=== PATIENT | female | born 1990 | race Caucasian/White ===

== ENCOUNTER 2017-02-22 11:40 | Emergency (ER) | payer SELFPAY ==
[2017-02-22 12:49] VITALS: BP 118/72
[2017-02-22 13:10] LABS: Hematocrit 39.7 % (30.3-42.9); Hemoglobin 12.7 gm/dl (10.1-14.3); Mean Corpuscular HGB Conc 32 % (30-34); Mean Corpuscular Hemoglobin 28 pg (28-32); Mean Corpuscular Volume 88 fl (79-97); Platelet Count 178 K/mm3 (140-440); Red Blood Count 4.53 M/mm3 (3.65-5.03); White Blood Count 3.2 K/mm3 (4.5-11.0)
[2017-02-22 13:55] LABS: Blastocytes % (Manual) 0 %; Diff Status Complete; Platelet Estimate Consistent w Auto; RBC Morphology Normal
[2017-02-22 14:57] LABS: Bilirubin,Urine NEG (Negative); Blood,Urine SM (Negative); Ketones,Urine NEG (Negative); Leukocyte Esterase,Urine TR (Negative); Mucus,Urine FEW /HPF; Nitrite,Urine NEG (Negative)
--- NOTE | 2017-02-22 16:12 | Emergency Department Report ---
ED Female HPI - General Chief complaint: Vaginal Bleeding Stated complaint: CRAMPING /POSSIBLE MISCARRIAGE Time Seen by Provider: 02/22/17 15:42 Source: patient Mode of arrival: Ambulatory Limitations: No Limitations - History of Present Illness Initial comments: pt is a 27 y/o aaf G2, P1, A1, LMP 01/30/2017 who presents for vaginal spotting x 2 days pt endorses cramping no vaginal discharge no feve no chills no n/v no back pain no dysuria no urgency no frequency no rash no lesions no open sores. MD Complaint: vaginal bleeding Onset/Timin -: days(s) Radiation: non-radiating, LLQ Quality: cramping Consistency: intermittent Improves with: none Worsens with: none Are you Now?: No Last Menstrual Period: 01/30/17 EDC: 11/06/17 Associated Symptoms: vaginal bleeding, abdominal pain. denies: vaginal discharge, nausea/vomiting, fever/chills, headaches, loss of appetite, dysuria, hematuria, rash, seizure, shortness of breath, syncope, weakness - Related Data Sexually active: Yes : 2 Para: 1 A: 1 Previous Rx's Medication Instructions Recorded Last Taken Type Ibuprofen [Motrin 800 MG tab] 800 mg PO Q8HR PRN #30 tablet 02/22/17 Unknown Rx Allergies Allergy/AdvReac Type Severity Reaction Status Date / Time No Known Allergies Allergy Unverified 02/22/17 12:50 ED Review of Systems ROS: Stated complaint: CRAMPING /POSSIBLE MISCARRIAGE Other details as noted in HPI Constitutional: denies: chills, fever Eyes: denies: eye pain, eye discharge, vision change ENT: denies: ear pain, throat pain Respiratory: denies: cough, shortness of breath, wheezing Cardiovascular: denies: chest pain, palpitations Endocrine: no symptoms reported Gastrointestinal: denies: abdominal pain, nausea, diarrhea Genitourinary: other (vaginal spotting ). denies: urgency, dysuria, frequency, hematuria, discharge, abnormal menses, dyspareunia Musculoskeletal: denies: back pain, joint swelling, arthralgia Skin: denies: rash, lesions Neurological: denies: headache, weakness, paresthesias Psychiatric: denies: anxiety, depression Hematological/Lymphatic: denies: easy bleeding, easy bruising ED Past Medical Hx - Past Medical History Previous Medical History?: No - Surgical History Past Surgical History?: No - Social History Smoking Status: Never Smoker Substance Use Type: None - Medications Home Medications: Home Medications Medication Instructions Recorded Confirmed Last Taken Type Ibuprofen [Motrin 800 MG tab] 800 mg PO Q8HR PRN #30 tablet 02/22/17 Unknown Rx ED Physical Exam - General Limitations: No Limitations General appearance: alert, in no apparent distress - Head Head exam: Present: atraumatic, normocephalic - Eye Eye exam: Present: normal appearance - ENT ENT exam: Present: mucous membranes moist - Neck Neck exam: Present: normal inspection - Respiratory Respiratory exam: Present: normal lung sounds bilaterally. Absent: respiratory distress - Cardiovascular Cardiovascular Exam: Present: regular rate, normal rhythm. Absent: systolic murmur, diastolic murmur, rubs, gallop - GI/Abdominal GI/Abdominal exam: Present: soft, normal bowel sounds. Absent: distended, tenderness, guarding, rebound, rigid, organomegaly, mass, bruit, pulsatile mass , hernia - Rectal Rectal exam: Present: deferred - External exam: Present: other (exam deferred per patient " I will follow up with Public Health Outreach Worker because I cant wait") - Extremities Exam Extremities exam: Present: normal inspection - Back Exam Back exam: Present: normal inspection, full ROM. Absent: tenderness, CVA tenderness (L), muscle spasm, paraspinal tenderness, vertebral tenderness - Neurological Exam Neurological exam: Present: alert, oriented X3 - Psychiatric Psychiatric exam: Present: normal affect, normal mood - Skin Skin exam: Present: warm, dry, intact, normal color. Absent: rash ED Course Vital Signs 02/22/17 12:46 Temperature 98.2 F Pulse Rate 78 Respiratory 16 Rate Blood Pressure 118/72 O2 Sat by Pulse 99 Oximetry ED Medical Decision Making - Lab Data Result diagrams: 02/22/17 12:54 Laboratory Tests 02/22/17 02/22/17 02/22/17 12:54 12:54 14:05 WBC 3.2 L RBC 4.53 Hgb 12.7 Hct 39.7 MCV 88 MCH 28 MCHC 32 RDW 15.0 Plt Count 178 Add Manual Diff Complete Total Counted 100 Seg Neuts % (Manual) 40.0 Band Neutrophils % 0 Lymphocytes % (Manual) 52.0 H Reactive Lymphs % (Man) 0 Monocytes % (Manual) 5.0 Eosinophils % (Manual) 2.0 Basophils % (Manual) 1.0 Metamyelocytes % 0 Myelocytes % 0 Promyelocytes % 0 Blast Cells % 0 Nucleated RBC % Not Reportable Seg Neutrophils # Man 1.3 L Band Neutrophils # 0.0 Lymphocytes # (Manual) 1.7 Abs React Lymphs (Man) 0.0 Monocytes # (Manual) 0.2 Eosinophils # (Manual) 0.1 Basophils # (Manual) 0.0 Metamyelocytes # 0.0 Myelocytes # 0.0 Promyelocytes # 0.0 Blast Cells # 0.0 WBC Morphology Not Reportable Hypersegmented Neuts Not Reportable Hyposegmented Neuts Not Reportable Hypogranular Neuts Not Reportable Smudge Cells Not Reportable Toxic Granulation Not Reportable Toxic Vacuolation Not Reportable Dohle Bodies Not Reportable Pelger-Huet Anomaly Not Reportable Jamie Rods Not Reportable Platelet Estimate Consistent w auto Clumped Platelets Not Reportable Plt Clumps, EDTA Not Reportable Large Platelets Not Reportable Giant Platelets Not Reportable Platelet Satelliting Not Reportable Plt Morphology Comment Not Reportable RBC Morphology Normal Dimorphic RBCs Not Reportable Polychromasia Not Reportable Hypochromasia Not Reportable Poikilocytosis Not Reportable Anisocytosis Not Reportable Microcytosis Not Reportable Macrocytosis Not Reportable Spherocytes Not Reportable Pappenheimer Bodies Not Reportable Sickle Cells Not Reportable Target Cells Not Reportable Tear Drop Cells Not Reportable Ovalocytes Not Reportable Helmet Cells Not Reportable [place] Bodies Not Reportable [place] Rings Not Reportable Curtis Cells Not Reportable Bite Cells Not Reportable Crenated Cell Not Reportable Elliptocytes Not Reportable Acanthocytes (Spur) Not Reportable Rouleaux Not Reportable Hemoglobin C Crystals Not Reportable Schistocytes Not Reportable Malaria parasites Not Reportable Wolf Bodies Not Reportable Hem Pathologist Commnt No HCG, Quant < 2 Urine Color Yellow Urine Turbidity Slightly-cloudy Urine pH 7.0 Ur Specific [place] 1.027 Urine Protein 30 mg/dl Urine Glucose (UA) Neg Urine Ketones Neg Urine Blood Sm Urine Nitrite Neg Urine Bilirubin Neg Urine Urobilinogen 2.0 Ur Leukocyte Esterase Tr Urine WBC (Auto) 3.0 Urine RBC (Auto) 5.0 U Epithel Cells (Auto) 41.0 H Urine Mucus Few - Medical Decision Making pt is a 27 y/o aaf G2, P1, A1, LMP 01/30/2017 who presents for vaginal spotting x 2 days pt endorses cramping no vaginal discharge no feve no chills no n/v no back pain no dysuria no urgency no frequency no rash no lesions no open sores. exam: pt appears well nontoxic no abdominal tenderness no rebound no bruit no hernia no superpubic pain no cva tenderness ua: normal wbc: normal , hcg negative. plan : ibuprofen prn pain , follow up with electric blanket wirer as scheduled next week , return to emergency if symptoms worsen. pt verbalized agreement and understanding with discharge plan. Critical care attestation.: If time is entered above; I have spent that time in minutes in the direct care of this critically ill patient, excluding procedure time. ED Disposition Clinical Impression: Vaginal bleeding Abdominal pain Qualifiers: Abdominal location: lower abdomen, unspecified Qualified Code(s): R10.30 - Lower abdominal pain, unspecified Disposition: - TO HOME OR SELFCARE Is pt being admited?: No Does the pt Need Aspirin: No Condition: Good Instructions: Menstruation (ED), Abdominal Pain (ED) Prescriptions: Ibuprofen [Motrin 800 MG tab] 800 mg PO Q8HR PRN #30 tablet PRN Reason: Pain Referrals: PRIMARY CARE,MD [Primary Care Provider] - 3-5 Days Forms: Work/School Release Form(ED) Time of Disposition: 16:17
== END 2017-02-22 16:35 | disposition home or self-care (01) ==
LOC: ED 11:40
DX: N93.9 Abnormal uterine and vaginal bleeding, unspecified (principal); R10.9 Unspecified abdominal pain
CPT/HCPCS: 36415; 81001; 84702; 85007; 85025; 99283

== ENCOUNTER 2017-04-29 19:48 | Emergency (ER) | payer MEDICAID, OTHER ==
[2017-04-29 21:33] VITALS: BP 127/88
== END 2017-04-30 01:01 | disposition left against medical advice (07) ==
LOC: ED 19:48
DX: M79.651 Pain in right thigh (principal); Z53.21 Procedure and treatment not carried out due to patient leaving prior to being seen by health care provider

== ENCOUNTER 2017-12-20 12:20 | Emergency (ER) | payer MEDICAID, OTHER ==
[2017-12-20 12:44] VITALS: BP 113/81
--- NOTE | 2017-12-20 15:10 | Emergency Department Report ---
ED ENT HPI - General Chief complaint: Headache Stated complaint: SINUS Time Seen by Provider: 12/20/17 14:57 Source: patient Mode of arrival: Ambulatory Limitations: No Limitations - History of Present Illness Initial comments: 27-year-old female past medical history none presents with complaint of 2-3 days of persistent sinus pressure or nasal drainage and postnasal drip symptoms. Denies earache but does have sore throat. Patient is awake alert and oriented 3 fully lucid speaking in full sentences. States she has had sneezing and nasal drainage. Denies nausea or vomiting. Denies productive cough but does have slight dry cough. Patient denies being a smoker. Patient states that her sinuses are aching. Onset/Timin -: days(s) Location: nose Severity: moderate Severity scale (0 -10): 5 Improves with: none Worsens with: none - Related Data Previous Rx's Medication Instructions Recorded Last Taken Type Ibuprofen [Motrin 800 MG tab] 800 mg PO Q8HR PRN #30 tablet 02/22/17 Unknown Rx Amoxicillin/K Clav Tab [Augmentin 1 tab PO Q12HR #14 tab 12/20/17 Unknown Rx 875 mg] Fluticasone [Flonase] 1 spray NS QDAY PRN #1 bottle 12/20/17 Unknown Rx Ibuprofen [Motrin] 800 mg PO Q8HR PRN #20 tablet 12/20/17 Unknown Rx Loratadine [Claritin] 10 mg PO DAILY PRN #30 tablet 12/20/17 Unknown Rx Phenylephrine/Dm/Acetaminop/GG 10 ml PO Q6H PRN #1 liquid 12/20/17 Unknown Rx [Mucinex Evhi-Ptk-Qlnrqqecmf Lq] Allergies Allergy/AdvReac Type Severity Reaction Status Date / Time No Known Allergies Allergy Unverified 02/22/17 12:50 ED Dental HPI - General Chief complaint: Headache Stated complaint: SINUS Time Seen by Provider: 12/20/17 14:57 Source: patient Mode of arrival: Ambulatory Limitations: No Limitations - Related Data Previous Rx's Medication Instructions Recorded Last Taken Type Ibuprofen [Motrin 800 MG tab] 800 mg PO Q8HR PRN #30 tablet 02/22/17 Unknown Rx Amoxicillin/K Clav Tab [Augmentin 1 tab PO Q12HR #14 tab 12/20/17 Unknown Rx 875 mg] Fluticasone [Flonase] 1 spray NS QDAY PRN #1 bottle 12/20/17 Unknown Rx Ibuprofen [Motrin] 800 mg PO Q8HR PRN #20 tablet 12/20/17 Unknown Rx Loratadine [Claritin] 10 mg PO DAILY PRN #30 tablet 12/20/17 Unknown Rx Phenylephrine/Dm/Acetaminop/GG 10 ml PO Q6H PRN #1 liquid 12/20/17 Unknown Rx [Mucinex Jptl-Amv-Zclsfrrmvc Lq] Allergies Allergy/AdvReac Type Severity Reaction Status Date / Time No Known Allergies Allergy Unverified 02/22/17 12:50 ED Review of Systems ROS: Stated complaint: SINUS Other details as noted in HPI Constitutional: denies: chills, fever Eyes: denies: eye pain, eye discharge, vision change ENT: as per HPI, congestion. denies: ear pain, throat pain Respiratory: denies: cough, shortness of breath, wheezing Cardiovascular: denies: chest pain, palpitations Endocrine: no symptoms reported Gastrointestinal: denies: abdominal pain, nausea, diarrhea Genitourinary: denies: urgency, dysuria, discharge Musculoskeletal: denies: back pain, joint swelling, arthralgia Skin: denies: rash, lesions Neurological: denies: headache, weakness, paresthesias Psychiatric: denies: anxiety, depression Hematological/Lymphatic: denies: easy bleeding, easy bruising ED Past Medical Hx - Past Medical History Previous Medical History?: No - Surgical History Past Surgical History?: No - Social History Smoking Status: Never Smoker Substance Use Type: None - Medications Home Medications: Home Medications Medication Instructions Recorded Confirmed Last Taken Type Ibuprofen [Motrin 800 MG tab] 800 mg PO Q8HR PRN #30 tablet 02/22/17 Unknown Rx Amoxicillin/K Clav Tab [Augmentin 1 tab PO Q12HR #14 tab 12/20/17 Unknown Rx 875 mg] Fluticasone [Flonase] 1 spray NS QDAY PRN #1 bottle 12/20/17 Unknown Rx Ibuprofen [Motrin] 800 mg PO Q8HR PRN #20 tablet 12/20/17 Unknown Rx Loratadine [Claritin] 10 mg PO DAILY PRN #30 tablet 12/20/17 Unknown Rx Phenylephrine/Dm/Acetaminop/GG 10 ml PO Q6H PRN #1 liquid 12/20/17 Unknown Rx [Mucinex Ajwk-Tat-Dqwjfwncgd Lq] ED Physical Exam - General Limitations: No Limitations General appearance: alert, in no apparent distress - Head Head exam: Present: atraumatic, normocephalic - Eye Eye exam: Present: normal appearance, PERRL, EOMI - ENT ENT exam: Present: mucous membranes moist - Neck Neck exam: Present: normal inspection - Respiratory Respiratory exam: Present: normal lung sounds bilaterally. Absent: respiratory distress - Cardiovascular Cardiovascular Exam: Present: regular rate, normal rhythm. Absent: systolic murmur, diastolic murmur, rubs, gallop - GI/Abdominal GI/Abdominal exam: Present: soft, normal bowel sounds - Extremities Exam Extremities exam: Present: normal inspection - Back Exam Back exam: Present: normal inspection - Neurological Exam Neurological exam: Present: alert, oriented X3 - Psychiatric Psychiatric exam: Present: normal affect, normal mood - Skin Skin exam: Present: warm, dry, intact, normal color. Absent: rash ED Course Vital Signs 12/20/17 12:34 Temperature 98.8 F Pulse Rate 73 Respiratory 18 Rate Blood Pressure 113/81 O2 Sat by Pulse 100 Oximetry ED Medical Decision Making - Medical Decision Making A/P: Acute Sinusitis 1-Flonase, Augmentin, Motrin, Mucinex, Claritin 2-follow-up with primary care and ENT 3-vital signs stable for discharge Critical care attestation.: If time is entered above; I have spent that time in minutes in the direct care of this critically ill patient, excluding procedure time. ED Disposition Clinical Impression: Acute sinusitis Qualifiers: Sinusitis location: frontal Recurrence: non-recurrent Qualified Code(s): J01.10 - Acute frontal sinusitis, unspecified Disposition: DC- TO HOME OR SELFCARE Is pt being admited?: No Does the pt Need Aspirin: No Condition: Stable Instructions: Sinusitis (ED) Prescriptions: Amoxicillin/K Clav Tab [Augmentin 875 mg] 1 tab PO Q12HR #14 tab Fluticasone [Flonase] 1 spray NS QDAY PRN #1 bottle PRN Reason: Congestion Ibuprofen [Motrin] 800 mg PO Q8HR PRN #20 tablet PRN Reason: Pain , Severe (7-10) Loratadine [Claritin] 10 mg PO DAILY PRN #30 tablet PRN Reason: Congestion Phenylephrine/Dm/Acetaminop/GG [Mucinex Ecak-Bce-Osxowyrlsk Lq] 10 ml PO Q6H PRN #1 liquid PRN Reason: Congestion Referrals: [facility] [Provider Group] - 3[facility] - 3-5 Days [facility] [Provider Group] - 3-5 Days Forms: Work/School Release Form(ED) Time of Disposition: 15:08
== END 2017-12-20 15:18 | disposition home or self-care (01) ==
LOC: ED 12:20
DX: J01.10 Acute frontal sinusitis, unspecified (principal)
CPT/HCPCS: 99281; 99282

== ENCOUNTER 2018-01-25 14:31 | Emergency (ER) | payer OTHER ==
[2018-01-25 14:36] VITALS: BP 131/78
--- NOTE | 2018-01-25 17:02 | Emergency Department Report ---
HPI - General Chief Complaint: Upper Respiratory Infection Time Seen by Provider: 01/25/18 16:40 - HPI HPI: 28-year-old female presents to the emergency department with complaint of sinus pressure, sinus headache for the past 2 days. The patient was here on December 20 with similar symptoms and was on Augmentin, Flonase, Claritin and a few other medications. The patient says that "the symptoms have returned." She denies any fever, nausea, vomiting. She has an occasional dry cough. No recent travel or sick contacts at home. She does not have a primary care physician. ED Past Medical Hx - Past Medical History Previous Medical History?: Yes Additional medical history: sinus infections, Vaginal delivery x 1 - Surgical History Past Surgical History?: No - Social History Smoking Status: Never Smoker Substance Use Type: Alcohol, Non Opiate Pain, Other - Medications Home Medications: Home Medications Medication Instructions Recorded Confirmed Last Taken Type Ibuprofen [Motrin 800 MG tab] 800 mg PO Q8HR PRN #30 tablet 02/22/17 Unknown Rx Amoxicillin/K Clav Tab [Augmentin 1 tab PO Q12HR #14 tab 12/20/17 Unknown Rx 875 mg] Ibuprofen [Motrin] 800 mg PO Q8HR PRN #20 tablet 12/20/17 Unknown Rx Phenylephrine/Dm/Acetaminop/GG 10 ml PO Q6H PRN #1 liquid 12/20/17 Unknown Rx [Mucinex Uynu-Aui-Mebhmoqntz Lq] Fluticasone [Flonase] 1 spray NS QDAY PRN #1 bottle 01/25/18 Unknown Rx Loratadine [Claritin] 10 mg PO DAILY PRN #30 tablet 01/25/18 Unknown Rx Pseudoephedrine ER [Sudafed 12 Hr] 120 mg PO BID #14 tablet.er 01/25/18 Unknown Rx ED Review of Systems ROS: Stated complaint: SINUS FLARED UP/DEHYDRATION Other details as noted in HPI Comment: All other systems reviewed and negative Constitutional: denies: chills, fever Eyes: denies: eye pain, eye discharge, vision change ENT: congestion. denies: ear pain Respiratory: cough. denies: shortness of breath Cardiovascular: denies: chest pain, palpitations Gastrointestinal: denies: abdominal pain, nausea, diarrhea Genitourinary: denies: urgency, dysuria, discharge Musculoskeletal: denies: back pain, joint swelling, arthralgia Skin: denies: rash, lesions Neurological: headache. denies: weakness Physical Exam - Physical Exam Vital Signs: Vital Signs 01/25/18 14:33 Temperature 98.7 F Pulse Rate 82 Respiratory 18 Rate Blood Pressure 131/78 O2 Sat by Pulse 97 Oximetry Physical Exam: GENERAL: The patient is well-developed well-nourished. HENT: Normocephalic. Atraumatic. Patient has moist mucous membranes. Normal appearing bilateral external ear canals and tympanic membranes. There is some boggy nasal mucosa. There is some reproducible tenderness to the maxillary sinuses. Oropharynx is clear without tonsillar hypertrophy, erythema or exudates. EYES: Extraocular motions are intact. Pupils equal reactive to light bilaterally. NECK: Supple. Trachea is midline. CHEST/LUNGS: Clear to auscultation. There is no respiratory distress noted. HEART/CARDIOVASCULAR: Regular. There is no tachycardia. There is no murmur. ABDOMEN: There is no abdominal distention. SKIN: There is no rash. There is no edema. There is no diaphoresis. NEURO: The patient is awake, alert, and oriented. The patient is cooperative. The patient has no focal neurologic deficits. The patient has normal speech and gait. MUSCULOSKELETAL: There is no tenderness or deformity. There is no evidence of acute injury. ED Course Vital Signs 01/25/18 14:33 Temperature 98.7 F Pulse Rate 82 Respiratory 18 Rate Blood Pressure 131/78 O2 Sat by Pulse 97 Oximetry ED Medical Decision Making - Medical Decision Making Patient complains of some sinus and nasal congestion. On physical exam she does not appear to have any signs of otitis media, otitis externa, strep pharyngitis. She does have some boggy nasal mucosa. The patient had the diagnosis of sinusitis about one month ago and was treated with antibiotics at that time. Vital signs stable throughout her ED course including being afebrile. I do not feel that she needs another dose of antibiotics at this time and that her sinus-related complaints are more likely to be environmental or viral. She has Flonase to use but will be given a refill prescription. We discussed using some Afrin and/or nasal washes. She will get a prescription for some decongestant such as Sudafed. She is instructed to follow-up with her primary care physician and return to the emergency Department with any worsening of her symptoms or any acute distress. - Differential Diagnosis sinusitis, upper respiratory infection, allergic rhinitis Critical Care Time: No Critical care attestation.: If time is entered above; I have spent that time in minutes in the direct care of this critically ill patient, excluding procedure time. ED Disposition Clinical Impression: Sinus congestion, Sinus pressure Disposition: TO HOME OR SELFCARE Is pt being admited?: No Condition: Stable Instructions: Sinusitis (ED), Upper Respiratory Infection (ED) Additional Instructions: Please follow-up with a primary care physician. Continue with your Flonase nasal spray. I have prescribed for you some Sudafed for nasal decongestant. You can also use Afrin nasal spray and/or a nasal wash such as Neti-pot. Return to the emergency Department with any worsening of your symptoms or any acute distress. Prescriptions: Fluticasone [Flonase] 1 spray NS QDAY PRN #1 bottle PRN Reason: Congestion Loratadine [Claritin] 10 mg PO DAILY PRN #30 tablet PRN Reason: Congestion Pseudoephedrine ER [Sudafed 12 Hr] 120 mg PO BID #14 tablet.er Referrals: PRIMARY CAREMD [Primary Care Provider] - 3-5 Days PRUDENCIO LORENZO MD [Staff Physician] - 3-5 Days [facility] [Outside] - 3-5 Days Forms: Work/School Release Form(ED) Time of Disposition: 17:01
== END 2018-01-25 17:05 | disposition home or self-care (01) ==
LOC: ED 14:31
DX: R09.81 Nasal congestion (principal); J34.89 Other specified disorders of nose and nasal sinuses; R51 Headache
CPT/HCPCS: 99282

== ENCOUNTER 2018-07-01 10:24 | Emergency (ER) | payer OTHER ==
[2018-07-01] MEDS ORDERED: TYLENOL PO ONE (11:10)
[2018-07-01] MEDS ORDERED: DELTASONE PO ONE (11:10)
[2018-07-01] MEDS ORDERED: ROBITUSSIN PO ONE (11:30)
--- NOTE | 2018-07-01 12:04 | Emergency Department Report ---
Minor Respiratory - HPI Chief Complaint: Upper Respiratory Infection Stated Complaint: FLU SYMPTONS/CHEST PAIN Time Seen by Provider: 07/01/18 10:55 Duration: 3 Days Pain Location: Facial, Throat Severity: moderate Minor Respiratory: Yes Rhinorrhea, Yes Sore Throat, Yes Able to Tolerate Fluids, Yes Cough, No Ear Pain, No Sick Contacts, No Hemoptysis, No Chest Pain, No Shortness of Breath, No Fever Other History: Patient is a 28-year-old female presents to the complaining of cough congestion runny nose as well for the past 3-4 days. Patient states she works in a cold environment worse overnight. patient states she can't recall her she's been around anyone that specific. ED Review of Systems ROS: Stated complaint: FLU SYMPTONS/CHEST PAIN Other details as noted in HPI Comment: All other systems reviewed and negative ED Past Medical Hx - Past Medical History Previous Medical History?: Yes Additional medical history: sinus infections, Vaginal delivery x 1 - Surgical History Past Surgical History?: No - Social History Smoking Status: Never Smoker Substance Use Type: None - Medications Home Medications: Home Medications Medication Instructions Recorded Confirmed Last Taken Type RX: Ibuprofen [Motrin 800 MG tab] 800 mg PO Q8HR PRN #30 tablet 02/22/17 Unknown Rx Amoxicillin/K Clav Tab [Augmentin 1 tab PO Q12HR #14 tab 12/20/17 Unknown Rx 875 mg] RX: Fluticasone [Flonase] 1 spray NS QDAY PRN #1 bottle 01/25/18 Unknown Rx RX: Loratadine [Claritin] 10 mg PO DAILY PRN #30 tablet 01/25/18 Unknown Rx Famotidine [Pepcid] 40 mg PO QHS #10 tablet 06/09/18 Unknown Rx Ondansetron [Zofran Odt] 4 mg PO Q8HR PRN #10 tab.rapdis 06/09/18 Unknown Rx RX: Ibuprofen [Motrin 800 MG tab] 800 mg PO Q8HR PRN #20 tablet 07/01/18 Unknown Rx RX: Phenylephrine/Dm/Acetaminop/GG 10 ml PO Q6H PRN #1 liquid 07/01/18 Unknown Rx [Mucinex Mffv-Prj-Tadurjevhp Lq] RX: Pseudoephedrine ER [Sudafed 12 120 mg PO BID #14 tablet.er 07/01/18 Unknown Rx Hr] Minor Respiratory Exam - Exam General: Vital signs noted. No distress. Alert and acting appropriately. HEENT: Yes Moist Mucous Membranes, No Pharyngeal Erythema, No Pharyngeal Exudates, No Rhinorrhea, No Conjuctival Injection, No Frontal Tenderness, No Maxillary Tenderness Ear: Neither TM Bulge, Neither TM Erythema, Neither EAC Pain, Neither EAC Discharge Neck: Yes Supple, No Adenopathy Lungs: Yes Good Air Exchange, No Wheezes, No Ronchi, No Stridor, No Cough, No Labored Respirations, No Retractions, No Use of Accessory Muscles, No Other Abnormal Lung Sounds Heart: Yes Regular, No Murmur Abdomen: Yes Normal Bowel Sounds, No Tenderness, No Peritoneal Signs Skin: No Rash, No Edema Neurologic: Alert and oriented, no deficits. Musculoskeletal: Unremarkable. ED Course Vital Signs 07/01/18 10:26 Temperature 97.9 F Pulse Rate 83 Respiratory 16 Rate Blood Pressure 122/85 O2 Sat by Pulse 100 Oximetry ED Medical Decision Making - Radiology Data Radiology results: report reviewed, image reviewed cc: JENNIFER JEAN Fluoro Time In Minutes: ROUTINE CHEST, TWO VIEWS: HISTORY: Chest pain with cough. The trachea, heart, mediastinal contour, lung simpson and bony thorax are unremarkable. IMPRESSION: Unremarkable chest x-ray. Transcribed By: TTR Dictated By: MADDY SANTOS JR, MD Electronically Authenticated By: MADDY SANTOS JR, MD Signed Date/Time: 07/01/18 1209 - Medical Decision Making 28-year-old female presents with viral syndrome. no fever during the ED stay. Chest x-ray shows no acute finding or signs of pneumonia/ consolidation Discussed with patient symptomatic relief with ygxc-mkm-ilntlly medications. Discussed continue Tylenol and Motrin as needed for fever and pain. Discussed increase fluids and diet intake. Discussed rest much needed. Discussed daily vitamin C for immune booster. Discussed follow-up with primary care physician in 3-5 days. Patient verbally states she understands and will comply the following instructions and follow-up Vital signs stable. Patient is in no acute distress Critical care attestation.: If time is entered above; I have spent that time in minutes in the direct care of this critically ill patient, excluding procedure time. ED Disposition Clinical Impression: Viral syndrome, Upper respiratory infection Disposition: TO HOME OR SELFCARE Is pt being admited?: No Does the pt Need Aspirin: No Condition: Stable Instructions: Upper Respiratory Infection (ED), Cold Symptoms (ED) Additional Instructions: Make sure to follow up with the primary care physician as discussed. Take all your medications as you've been prescribed. If you have any worsening symptoms or develop new symptoms please return to ED immediately. Prescriptions: RX: Ibuprofen [Motrin 800 MG tab] 800 mg PO Q8HR PRN #20 tablet PRN Reason: Pain , Severe (7-10) RX: Phenylephrine/Dm/Acetaminop/GG [Mucinex Gbzv-Ndo-Qlarisfyqg Lq] 10 ml PO Q6H PRN #1 liquid PRN Reason: Congestion RX: Pseudoephedrine ER [Sudafed 12 Hr] 120 mg PO BID #14 tablet.er Referrals: PRIMARY CARE, [Primary Care Provider] - 3-5 Days [facility] [Outside] - 3-5 Days [facility] [Outside] - 3-5 Days Forms: Work/School Release Form(ED) Time of Disposition: 12:18
--- NOTE | 2018-07-01 12:12 | XRay Report ---
ROUTINE CHEST, TWO VIEWS: HISTORY: Chest pain with cough. The trachea, heart, mediastinal contour, lung simpson and bony thorax are unremarkable. IMPRESSION: Unremarkable chest x-ray.
[2018-07-01 12:39] VITALS: BP 121/75
== END 2018-07-01 12:36 | disposition home or self-care (01) ==
LOC: ED 10:24
DX: B34.9 Viral infection, unspecified (principal); J06.9 Acute upper respiratory infection, unspecified
CPT/HCPCS: 71046; 93005; 93010; 99283; J7512

== ENCOUNTER 2018-09-18 16:42 | Emergency (ER) | payer OTHER ==
[2018-09-18 17:33] VITALS: BP 129/89
--- NOTE | 2018-09-18 17:34 | Emergency Department Report ---
Blank Doc - Documentation Documentation: 28 y o female presents presents with a pressure pushing type chest pain x couple of days [facility] eval
[2018-09-18 18:12] LABS: Basophils % (Auto) 0.4 % (0.0-1.8); Eosinophils % (Auto) 0.4 % (0.0-4.3); Hematocrit 36.5 % (30.3-42.9); Lymphocytes # (Auto) 1.9 K/mm3 (1.2-5.4); Lymphocytes % (Auto) 47.5 % (13.4-35.0); Mean Corpuscular HGB Conc 33 % (30-34); Mean Corpuscular Volume 89 fl (79-97); Monocytes # (Auto) 0.4 K/mm3 (0.0-0.8); Monocytes % (Auto) 10.2 % (0.0-7.3); Platelet Count 173 K/mm3 (140-440); Red Blood Count 4.13 M/mm3 (3.65-5.03); Red Cell Distribution Width 13.8 % (13.2-15.2)
[2018-09-18 18:50] LABS: BUN/Creatinine Ratio 14; Blood Urea Nitrogen 10 mg/dL (7-17); Calcium 8.9 mg/dL (8.4-10.2); Hemolysis Index 4
--- NOTE | 2018-09-18 21:01 | XRay Report ---
PROCEDURE: XR CHEST ROUTINE 2V TECHNIQUE: PA and lateral chest radiographs were obtained. HISTORY: Chest Pain COMPARISONS: None. FINDINGS: Heart: Normal. Mediastinum/Vessels: Normal. Lungs/Pleural space: Normal. Bony thorax: No acute osseous abnormality. IMPRESSION: Normal examination. This document is electronically signed by Andreas Jacobsen MD., September 18 2018 08:59:20 PM ET
--- NOTE | 2018-09-18 21:56 | Emergency Department Report ---
<TOBIAS IRWIN - Last Filed: 09/24/18 10:43> ED Chest Pain HPI - General Chief Complaint: Chest Pain Stated Complaint: CHEST PAIN/EYES BURNING Time Seen by Provider: 09/18/18 17:32 - Related Data Previous Rx's Medication Instructions Recorded Last Taken Type Ibuprofen [Motrin 800 MG tab] 800 mg PO Q8HR PRN #30 tablet 02/22/17 Unknown Rx Amoxicillin/K Clav Tab [Augmentin 1 tab PO Q12HR #14 tab 12/20/17 Unknown Rx 875 mg] Loratadine [Claritin] 10 mg PO DAILY PRN #30 tablet 01/25/18 Unknown Rx Famotidine [Pepcid] 40 mg PO QHS #10 tablet 06/09/18 Unknown Rx Ondansetron [Zofran Odt] 4 mg PO Q8HR PRN #10 tab.rapdis 06/09/18 Unknown Rx Ibuprofen [Motrin 800 MG tab] 800 mg PO Q8HR PRN #20 tablet 07/01/18 Unknown Rx Phenylephrine/Dm/Acetaminop/GG 10 ml PO Q6H PRN #1 liquid 07/01/18 Unknown Rx [Mucinex Qpby-Ard-Ytdtcovzsv Lq] Cetirizine HCl [ZyrTEC] 10 mg PO QDAY #14 capsule 09/18/18 Unknown Rx Fluticasone [Flonase] 1 spray NS QDAY PRN #1 bottle 09/18/18 Unknown Rx Ketotifen Fumarate [Zaditor] 1 drop OP QDAY #1 bottle 09/18/18 Unknown Rx Pseudoephedrine ER [Sudafed 12 Hr] 120 mg PO BID #14 tablet.er 09/18/18 Unknown Rx Allergies Allergy/AdvReac Type Severity Reaction Status Date / Time No Known Allergies Allergy Verified 09/18/18 17:05 ED Past Medical Hx - Medications Home Medications: Home Medications Medication Instructions Recorded Confirmed Last Taken Type Ibuprofen [Motrin 800 MG tab] 800 mg PO Q8HR PRN #30 tablet 02/22/17 Unknown Rx Amoxicillin/K Clav Tab [Augmentin 1 tab PO Q12HR #14 tab 12/20/17 Unknown Rx 875 mg] Loratadine [Claritin] 10 mg PO DAILY PRN #30 tablet 01/25/18 Unknown Rx Famotidine [Pepcid] 40 mg PO QHS #10 tablet 06/09/18 Unknown Rx Ondansetron [Zofran Odt] 4 mg PO Q8HR PRN #10 tab.rapdis 06/09/18 Unknown Rx Ibuprofen [Motrin 800 MG tab] 800 mg PO Q8HR PRN #20 tablet 07/01/18 Unknown Rx Phenylephrine/Dm/Acetaminop/GG 10 ml PO Q6H PRN #1 liquid 07/01/18 Unknown Rx [Mucinex Ruxj-Pzz-Zrxnmaetob Lq] Cetirizine HCl [ZyrTEC] 10 mg PO QDAY #14 capsule 09/18/18 Unknown Rx Fluticasone [Flonase] 1 spray NS QDAY PRN #1 bottle 09/18/18 Unknown Rx Ketotifen Fumarate [Zaditor] 1 drop OP QDAY #1 bottle 09/18/18 Unknown Rx Pseudoephedrine ER [Sudafed 12 Hr] 120 mg PO BID #14 tablet.er 09/18/18 Unknown Rx ED Medical Decision Making - Lab Data Result diagrams: 09/18/18 18:00 09/18/18 18:00 ED Disposition Clinical Impression: Allergic rhinitis Disposition: DC-01 TO HOME OR SELFCARE Is pt being admited?: No Condition: Stable Instructions: Allergies (ED) Additional Instructions: Take Medication as prescribed. Follow up with A Primary Care Provider. Prescriptions: Fluticasone [Flonase] 1 spray NS QDAY PRN #1 bottle PRN Reason: Congestion Pseudoephedrine ER [Sudafed 12 Hr] 120 mg PO BID #14 tablet.er Ketotifen Fumarate [Zaditor] 1 drop OP QDAY #1 bottle Cetirizine HCl [ZyrTEC] 10 mg PO QDAY #14 capsule Referrals: LIDA HARRISON MD [Primary Care Provider] - 3-5 Days Forms: Work/School Release Form(ED) <MARTY AMOS - Last Filed: 10/24/18 02:36> ED Chest Pain HPI - General Source: patient Mode of arrival: Ambulatory Limitations: No Limitations - History of Present Illness Initial Comments: 28-year-old -[place] female reports to the emergency room for cough with chest pain. Patient states that it started last night. Patient also complains of shortness of breathing and eyes burning. Patient reports that she had similar symptoms like this in beginning of the year. Patient is tried nothing for esxh-aai-fentldm to help alleviate her discomfort. MD Complaint: chest pain -: days(s) (1) Severity scale (0 -10): 10 Consistency: intermittent re: denies: nausea, vomting Heart Score - HEART Score History: Slightly suspicious EKG: Normal Age: < 45 Risk factors: No known risk factors Troponin: < normal limit HEART Score: 0 ED Review of Systems ROS: Stated complaint: CHEST PAIN/EYES BURNING Other details as noted in HPI Comment: All other systems reviewed and negative Constitutional: denies: chills, fever Respiratory: cough, shortness of breath Endocrine: no symptoms reported Gastrointestinal: denies: abdominal pain, nausea, diarrhea Genitourinary: denies: urgency, dysuria, discharge Musculoskeletal: denies: back pain, joint swelling, arthralgia Skin: denies: rash, lesions Neurological: denies: headache, weakness, paresthesias Psychiatric: denies: anxiety, depression Hematological/Lymphatic: denies: easy bleeding, easy bruising ED Past Medical Hx - Past Medical History Previous Medical History?: Yes Additional medical history: sinus infections, Vaginal delivery x 1 - Surgical History Past Surgical History?: No - Social History Smoking Status: Never Smoker Substance Use Type: None ED Physical Exam - General Limitations: No Limitations General appearance: alert, in no apparent distress - Head Head exam: Present: atraumatic, normocephalic - Eye Eye exam: Present: PERRL, EOMI - ENT ENT exam: Present: mucous membranes moist - Neck Neck exam: Present: normal inspection - Respiratory Respiratory exam: Present: normal lung sounds bilaterally - Cardiovascular Cardiovascular Exam: Present: regular rate, normal rhythm. Absent: systolic murmur, diastolic murmur, rubs, gallop - GI/Abdominal GI/Abdominal exam: Present: soft, normal bowel sounds - Neurological Exam Neurological exam: Present: alert, oriented X3 - Psychiatric Psychiatric exam: Present: normal affect, normal mood - Skin Skin exam: Present: warm, dry, intact, normal color. Absent: rash ED Course Vital Signs 09/18/18 09/18/18 17:32 22:15 Temperature 98.4 F Pulse Rate 78 82 Respiratory 16 16 Rate Blood Pressure 129/89 O2 Sat by Pulse 100 99 Oximetry ARSALAN score - Arsalan Score Age > 65: (0) No Aspirin use within the Past 7 Days: (0) No 3 or more CAD Risk Factors: (0) No 2 or more Angina events in past 24 hrs: (0) No Known CAD with more than 50% Stenosis: (0) No Elevated Cardiac Markers: (0) No ST Deviation Greater than 0.5mm: (0) No ARSALAN Score: 0 ED Medical Decision Making - Lab Data Result diagrams: 09/18/18 18:00 09/18/18 18:00 Labs 09/18/18 09/18/18 09/18/18 18:00 18:00 18:00 WBC 3.9 L RBC 4.13 Hgb 12.0 Hct 36.5 MCV 89 MCH 29 MCHC 33 RDW 13.8 Plt Count 173 Lymph % (Auto) 47.5 H Amador % (Auto) 10.2 H Eos % (Auto) 0.4 Baso % (Auto) 0.4 Lymph # 1.9 Amador # 0.4 Eos # 0.0 Baso # 0.0 Seg Neutrophils % 41.5 Seg Neutrophils # 1.6 L Sodium 140 Potassium 4.1 Chloride 104.5 Carbon Dioxide 28 Anion Gap 12 BUN 10 Creatinine 0.7 Estimated GFR > 60 BUN/Creatinine Ratio 14 Glucose 83 Calcium 8.9 Troponin T < 0.010 HCG, Qual Negative - Radiology Data Radiology results: report reviewed Patient: ALLEN SANTAMARIA MR#: [id number] : 1990 Acct:[id number] Age/Sex: 28 / F ADM Date: 09/18/18 Loc: ED Attending Dr: Ordering Physician: JENNIFER JEAN Date of Service: 09/18/18 Procedure(s): XR chest routine 2V Accession Number(s): [id number] cc: JENNIFER JEAN Fluoro Time In Minutes: PROCEDURE: XR CHEST ROUTINE 2V TECHNIQUE: PA and lateral chest radiographs were obtained. HISTORY: Chest Pain COMPARISONS: None. FINDINGS: Heart: Normal. Mediastinum/Vessels: Normal. Lungs/Pleural space: Normal. Bony thorax: No acute osseous abnormality. IMPRESSION: Normal examination. This document is electronically signed by Aniyah Jacobsen MD., September 18 2018 08:59:20 PM ET Transcribed By: UBC Dictated By: ANIYAH JACOBSEN B Electronically Authenticated By: ANIYAH JACOBSEN Signed Date/Time: 09/18/182100 DD/ 50 TD/TT: 09/18/181850 - Medical Decision Making Patient has been evaluated by this provider in [facility]. Patient appears to have allergic rhinitis with acute cough that causes chest pain. Prescribed patient anja-eii-uxdioua medications. Referred patient to her primary care provider. Labs were stable. Chest x-ray is negative. Critical care attestation.: If time is entered above; I have spent that time in minutes in the direct care of this critically ill patient, excluding procedure time. ED Disposition Is pt being admited?: No Does the pt Need Aspirin: No
== END 2018-09-18 22:15 | disposition home or self-care (01) ==
LOC: ED 16:42
DX: J30.9 Allergic rhinitis, unspecified (principal); Z79.899 Other long term (current) drug therapy
CPT/HCPCS: 36415; 71046; 80048; 84484; 84703; 85025; 93005; 93010